=== PATIENT | male | born 1950 | race Caucasian/White ===

== ENCOUNTER 2017-06-14 08:32 | Outpatient (CLI) | payer MEDICARE, OTHER ==
[~2017-06-14] VITALS: Ht 172.7 cm; Wt 105.9 kg
--- NOTE | ~2017-06-14 | HEMODYNAMI ---
PATIENT:CAROLANN FITZGERALD MEDICAL RECORD: [id number] : 50 LOCATION:D.CAT ADMISSION DATE: 06/14/17 Generatedon:06/14/201712:06 Patient name: CAROLANN FITZGERALD Patient #: [id number] SSN: DO B: 1950 Date of study: 06/14/2017 Page: Of Hemodynamic Procedure Report Patient Data Patient Demographics Procedure consent was obtained First Name: CAROLANN Gender: Male Last Name: LIA : 1950 [facility] Initial: R Age: 67 year(s) Patient #: [id number] Race: Unknown Additional ID: [id number] Contact details Address: [address] [place] [address] State: [place] City: [facility] Zip code: [address] Past Medical History Allergies: No known allergies Admission Admission Data Admission Date: 06/14/2017 Admission Time: 8:32 Height (in.): 70 BSA: 2.25 (m2) Height (cm.): 177.8 BMI: 34.15 (kg/m2) Weight (lbs.): 238 Weight (kg.): 107.95 Procedure Procedure Types Cath Procedure Diagnostic Procedure LHC LH w/Coronaries PCI Procedure Coronary Stent Initial Procedure Description Procedure Date Procedure Date: 06/14/2017 Procedure Start Time: 11:27 Procedure End Time: 12:02 Procedure Staff Name Function Antonio Rodrigues MD Performing Physician Chelsi Tripathi RN Nurse Shannan Cuello RT Monitor Elton Vickers RT Scrub Procedure Data Cath Procedure Fluoroscopy Diagnostic fluoroscopy Total fluoroscopy Time: 8.7 time: 8.7 min min Diagnostic fluoroscopy Total fluoroscopy dose: dose: 2251 mGy 2251 mGy Contrast Material Contrast Material Type Amount (ml) Isovue 300 209 Entry Location Entry Primary Successful Side Size Upsize Upsize Entry Closure Succes sful Closure Location (Fr) 1 (Fr) 2 (Fr) Remarks Device Remarks Femoral Right 5 Fr 6 Fr Exoseal artery Short Estimated blood loss: 10 ml Diagnostic catheters Device Type Used For End Catheter Placement Cordis 5Fr JL 4.0 Procedure Catheter (MP) Cordis 5Fr 3DRC Catheter Procedure (MP) Cordis 5Fr Pigtail Ventriculography Catheter (MP) Procedure Complications No complications Procedure Medications Medication Administration Route Dosage Plavix P.O. 75 mg Heparin Flush Bag added to field 2 bags (1000units/500ml NS) Lidocaine 2% added to field 20 Oxygen NC 2 l/min Versed I.V. 1 mg Fentanyl I.V. 50 mcg Versed I.V. 1 mg Fentanyl I.V. 50 mcg Versed I.V. 1 mg Fentanyl I.V. 50 mcg Heparin Bolus I.V. 23111 units Nitroglycerin IC/IA I.C. 100 mcg Hemodynamics Rest BSA: 2.25 (m2) O2 Consumption: Estimated: 280.99 (ml/min) O2 Consumption indexed : Estimated:124.88 (ml/min/m) Heart Rate: 93 (bpm) Pressure Samples Time Site Value (mmHg) Purpose Heart Use Rate(bpm) 11:35 LV 120/28,70 Snapshot 56 Snapshots Pre Cath Intra NCS Post Cath Vital Signs Time Heart Resp SPO2 NIBP (mmHg) Rhythm Pain Sedation Rate (ipm) (%) Status Level (bpm) 11:10:00 80 16 98 121/76(101) NSR 0 (11) 10(A) , No pain 11:14:22 90 29 98 110/52(81) NSR 0 (11) 10(A) , No pain 11:18:30 77 16 98 114/75(97) NSR 0 (11) 10(A) , No pain 11:22:38 75 17 98 106/79(90) NSR 0 (11) 9(A) , No pain 11:26:44 73 18 96 116/73(92) NSR 0 (11) 9(A) , No pain 11:30:50 77 25 99 131/83(91) NSR 0 (11) 9(A) , No pain 11:34:35 78 16 85 121/67(90) NSR 0 (11) 9(A) , No pain 11:38:45 77 16 98 121/81(104) NSR 0 (11) 9(A) , No pain 11:42:55 82 16 97 125/82(102) NSR 0 (11) 9(A) , No pain 11:47:09 76 16 97 119/77(88) NSR 0 (11) 9(A) , No pain 11:51:21 81 15 97 123/75(94) NSR 0 (11) 9(A) , No pain 11:55:30 78 16 97 114/75(90) NSR 0 (11) 9(A) , No pain 11:59:36 79 19 96 110/74(90) NSR 0 (11) 9(A) , No pain 12:04:46 82 16 96 113/73(94) NSR 0 (11) 9(A) , No pain Medications Time Medication Route Dose Verified Delivered Reason Notes Effectiveness by by 11:03:17 Plavix P.O. 75 mg Antonio Chelsi for Dusty Tripathi RN antiplatelet therapy 11:03:32 Oxygen NC 2 Antonio Chelsi Per physician l/min Dusty Tripathi RN 11:09:24 Heparin Flush added 2 Antonio Antonio used for Bag to bags Dusty Rodrigues MD procedure (1000units/500ml field NS) 11:09:31 Lidocaine 2% added 20ml Antonio Antonio used for to vial Dusty Rodrigues MD procedure field 11:13:30 Versed I.V. 1 mg Antonio Chelsi for sedation Dusty Tripathi RN 11:13:36 Fentanyl I.V. 50 Antonio Chelsi for sedation mcg Dusty Tripathi RN 11:16:48 Versed I.V. 1 mg Antonio Chelsi for sedation Dusty Tripathi RN 11:16:52 Fentanyl I.V. 50 Antonio Chelsi for sedation mcg Dusty Tripathi RN 11:20:01 Fentanyl I.V. 50 Antonio Chlesi for sedation mcg Dusty Tripathi RN 11:20:45 Versed I.V. 1 mg Antonio Chelsi for sedation Dusty Tripathi RN 11:41:18 Heparin Bolus I.V. 60967 Antonio Chelsi for dose units Dusty Tripathi RN anticoagulation verifeid wtih dr rodrigues 11:56:41 Nitroglycerin I.C. 100 Antonio Antonio for IC/IA mcg Dusty Rodrigues MD vasodilation Procedure Log Time Note 10:45:26 Diagnostic Cath Status : Elective 10:46:43 Elton Vickers RT(R) (CV) sent for patient. Start room use. 10:48:30 Time tracking: Regular hours 10:48:36 Plan of Care:Hemodynamics will remain stable., Cardiac rhythm will remain stable., Comfort level will be maintained., Respiratory function will remain adequate., Patient/ family verbilizes understanding of procedure., Procedure tolerated without complication., Recovers from procedure without complications.. 11:00:58 Patient diabetic? Yes. 11:00:59 If diabetic: On Metformin? Yes 11:01:06 If on Metformin: Last Dose? 06/13/2017 11:01:46 Snore? Yes 11:01:49 Sleep apnea? Yes 11:01:59 Dentures? No ? 11:02:15 Patient received from Pre/Post Procedure Room to CCL 2 Alert and oriented. Tansferred to table in Supine position. 11:02:16 Warm blankets applied, and opal hugger turned on for patient comfort. 11:02:17 Correct patient and procedure confirmed by team. 11:02:19 Signed procedure consent form obtained from patient. 11:02:24 Pre-procedure instructions explained to patient. 11:02:31 Pre-op teaching completed and patient verbalized understanding. 11:02:33 Family in waiting room. 11:02:37 Patient NPO since Midnight. 11:03:05 Patient allergic to No known allergies 11:03:09 Is the patient allergic to Iodine/contrast media? No. 11:03:11 Is patient on blood thinner?Yes 11:03:14 ACC The patient was administered the following blood thiners within the last 24 hours: ACCPlavix 11:03:17 Plavix 75 mg P.O. was administered by Chelsi Tripathi RN; for antiplatelet therapy; 11:03:21 Patient pain scale 0/10 ?. 11:03:32 Oxygen 2 l/min NC was administered by Chelsi Tripathi RN; Per physician; 11:03:33 IV patent on arrival in right hand with 0.9% NaCl at O. 11:03:44 Lab results completed and on chart. 11:03:48 Right groin area was prepped with chlora-prep and draped in sterile fashion 11:03:49 Alarms reviewed by R. N. 11:03:50 Sharps counted by scrub and verified by R.N. 11:03:52 Physician paged 11:04:56 Patient Height : 177.8 cm 11:05:02 Patient Weight : 107.95 kg 11:08:54 Vital chart was started 11:09:24 Heparin Flush Bag (1000units/500ml NS) 2 bags added to field was administered by Antonio Rodrigues MD; used for procedure; 11:09:31 Lidocaine 2% 20ml vial added to field was administered by Antonio Rodrigues MD; used for procedure; 11:11:58 Physician arrived 11:12:02 Right groin site verified by team. 11:12:12 Physical assessment completed. ASA score P 2 - A patient with mild systemic disease as per Antonio Rodrigues MD. 11:12:16 Sedation plan: IV Moderate Sedation Versed, Fentanyl 11:12:22 ECG and BP/O2 sat monitors applied to patient. 11:12:23 Baseline sample Acquired. 11:12:24 Full Disclosure recording started 11::52 --------ALL STOP TIME OUT------ 11:12:53 Final Timeout: patient, procedure, and site verified with staff and physician. All members of the team are in agreement. 11:13:30 Versed 1 mg I.V. was administered by Chelsi Tripathi RN; for sedation; 11:13:36 Fentanyl 50 mcg I.V. was administered by Chelsi Tripathi RN; for sedation; 11:14:43 Use device set Femoral Dx 11:14:44 Acist Syringe opened to sterile field. 11:14:45 Bag Decanter opened to sterile field. 11:14:45 Medline Cath Pack opened to sterile field. 11:14:46 Terumo 5Fr Shawnee Sheath opened to sterile field. 11:14:46 St Mello 260cm J .035 wire opened to sterile field. 11:14:48 Acist Hand Control opened to sterile field. 11:14:48 Acist Manifold opened to sterile field. 11:14:48 Diagnostic Infinity 5Fr Multipack catheter opened to sterile field. 11:14:49 Tegaderm 4 x 4 opened to sterile field. 11:16:48 Versed 1 mg I.V. was administered by Chelsi Tripathi RN; for sedation; 11:16:52 Fentanyl 50 mcg I.V. was administered by Chelsi Tripathi RN; for sedation; 11:20:01 Fentanyl 50 mcg I.V. was administered by Chelsi Tripathi RN; for sedation; 11:20:45 Versed 1 mg I.V. was administered by Chelsi Tripathi RN; for sedation; 11:24:09 Zero performed for pressure channel P1 11:27:03 Procedure started. 11:27:32 Local anesthetic to right femoral artery with Lidocaine 2% by Antonio Rodrigues MD.INITIAL ACCESS ONLY 11:28:06 A 5 Fr sheath was inserted into the Right Femoral artery 11:29:11 A Cordis 5Fr JL 4.0 Catheter (MP) was advanced over the wire and used for Procedure. 11:30:13 LCA angiography performed. 11:30:56 Catheter removed. 11:31:51 A Cordis 5Fr 3DRC Catheter (MP) was advanced over the wire and used for Procedure. 11:32:42 RCA angiography performed. 11:33:58 Catheter removed. 11:34:19 A Cordis 5Fr Pigtail Catheter (MP) was advanced over the wire and used for Ventriculography. 11:36:18 EF : 45 % 11:36:19 Catheter removed. 11:37:39 Merit BasixCompak Inflation Kit opened to sterile field. 11:37:40 Terumo 6Fr Shawnee Sheath opened to sterile field. 11:37:41 Cordis 6FR XBLAD 3.5 guide catheter opened to sterile field. 11:37:41 High Pressure Extension Tubing (Dusty) opened to sterile field. 11:37:42 Cook BMW Sawyer 2 J-tip 300cm 0.014 guide wir opened to sterile field. 11:37:56 Sheath upsized to a 6 Fr Short. 11:38:09 6 Fr XBLAD 3.5 guide catheter was inserted over the wire 11:39:06 Wire advanced across lesion. 11:41:18 Heparin Bolus 74569 units I.V. was administered by Chelsi Tripathi RN; for anticoagulation; dose verifeid wt dr rodrigues 11:47:07 Inflation Number: 1 A Fernando OTW 3.0 x 12 stent was prepped and advanced across the 2nd Ob Soniya. The stent was deployed at 13 MYKE for 0:13 (min:sec). 11:51:56 Inflation Number: 2 A [place] OTW 2.75 x 08 stent was prepped and advanced across the 2nd Ob Soniya. The stent was deployed at 12 MYKE for 0:00 (min:sec). 11:52:19 Stent catheter was removed intact over wire. 11:54:45 Cordis 6Fr Exoseal opened to sterile field. 11:56:11 Inflation Number: 1 A [place] OTW 3.0 x 08 stent was prepped and advanced across the Prox CX. The stent was deployed at 12 MYKE for 0:00 (min:sec). 11:56:19 Stent catheter was removed intact over wire. 11:56:41 Nitroglycerin IC/IA 100 mcg I.C. was administered by Antonio Rodrigues MD; for vasodilation; 12:00:49 Wire removed. 12:00:50 Guide catheter removed. 12:01:03 Sheath removed intact; hemostasis achieved with Exoseal to the Right Femoral artery. 12:01:06 Procedure ended.(Physican Out) 12:01:19 Fluoroscopy time 08.70 minutes. 12:01:24 Flurop Dose total: 2251 12:01:24 Fluoroscopy dose: 2251 mGy 12:01:30 Contrast amount:Isovue 300 209ml. 12:01:32 Sharps counted by scrub and verified by R.N. 12:01:35 Insertion/operative site no bleeding no hematoma. 12:01:40 Post-op/insertion site Right Femoral artery dressed using a 4 x 4 and Tegaderm. 12:01:47 Post Procedure Pulses reassessed and unchanged 12:01:54 Post-procedure physical assessment completed. ASA score P 2 - A patient with mild systemic disease as per Antonio Rodrigues MD. 12:01:57 Post procedure rhythm: unchanged. 12:01:59 Estimated blood loss: 10 ml 12:02:01 Post procedure instruction explained to patient.Patient verbalizes understanding. 12:02:18 Procedure type changed to Cath procedure, Diagnostic procedure, LHC, LHC w/Coronaries, PCI procedure, Coronary Stent Initial 12:02:20 Procedure and supply charges have been captured, reviewed, submitted and are correct. 12:02:45 Procedure Complication : No complications 12:02:47 Vital chart was stopped 12:02:49 See physician's report for complete and final results. 12:02:50 Report given to Pre/Post Procedure Room. 12:02:54 Patient transfered to Pre/Post Procedure Room with Stretcher. 12:02:56 Procedure ended. 12:02:56 Full Disclosure recording stopped 12:03:01 End room use (Document Last) 12:03:17 ACC-PCI Only Patient was given prescriptions, or instructed by Antonio Rodrigues MD to start/continue the following medications upon discharge: Plavix Intervention Summary Intervention Notes Time ActionType Lesion and Equipment Action# Pressure Duration Attributes Used 11:47:07 Place stent 2nd Ob Soniya Fernando OTW 1 13 00:14 3.0 x 12 stent 11:51:56 Place stent 2nd Ob Soniya [place] OTW 2 12 00:00 2.75 x 08 stent 11:56:11 Place stent Prox CX Fernando OTW 1 12 00:00 3.0 x 08 stent Device Usage Item Name Manufacture Quantity Catalog Hospital Part Current Minima l Lot# / Number Charge Number Stock Stock Serial# Code Acist Acist 1 93673 038852 137999 392601 20 Syringe [employer] Inc Bag Microtek 1 2002S 114456 09256 213267 5 [employer] Medline Cardinal 1 [id number] 833659 42738 570703 5 Cath Pack Health Terumo 5Fr Terumo 1 [id number] 846946 209025 265115 [address] Mello St Mello 1 993279 023026 959858 956682 30 260cm J .035 wire Acist Hand Acist 1 46288 879640 400843 080263 5 Aposense [employer] Inc Acist Acist 1 48643 735267 324801 091073 5 Actifio Medical [employer] Inc Diagnostic Cardinal 1 [id number] 019091 78629 799603 30 Infinity Health 5Fr Multipack catheter Tegaderm 4 3M 1 [id number] 415476 786821 220871 5 x 4 Cordis 5Fr Cardinal 1 094907 5 JL 4.0 Health Catheter (MP) Cordis 5Fr Cardinal 1 343497 5 3DRC Health Catheter (MP) Cordis 5Fr Cardinal 1 880972 5 Pigtail Health Catheter (MP) Merit Merit 1 [id number] 334480 118763 038580 15 Rivalry Medical Inflation Kit Terumo 6Fr Terumo 1 [id number] 988898 937361 486076 40 Shawnee Sheath Cordis 6FR Cardinal 1 [id number] 706721 495634 992029 10 XBLAD 3.5 Health guide catheter [facility] 1 [id number] 761468 58108 449768 10 Pressure Medical Extension Tubing (Rodrigues) Cook BMW Cook 1 [id number] 616230 164556 235487 5 Sawyer 2 Vascular J-tip 300cm 0.014 guide wir Fernando OTW Medtronic 1 [id number] 296139 485093 854751 5 [id number] 3.0 x 12 stent Fernando OTW Medtronic 1 [id number] 768409 48375 867672 5 [id number] 2.75 x 08 stent Cordis 6Fr Cardinal 1 [id number] 075685 866985 556573 10 Exoseal Health [place] OTW Medtronic 1 [id number] 833414 1998627 230314 5 [id number] 3.0 x 08 stent Signature Audit Strawn Stage Time Signature Unsigned Intra-Procedure 06/14/2017 Shannan Cuello 12:06:54 PM RT(R) Signatures Monitor : Shannan Cuello Signature : RT Date : Time : [place] [id number] [place] [address]
[~2017-06-14 08:32] MED LIST: ALDACTONE50 MG PO; AMARYL1 MG PO; ASPIRIN325 MG PO; ENDOCET 10-3251 TAB; ENDOCET 10-3251 TAB PO; GLUCOPHAGE1000 MG PO; LASIX20 MG PO; LIPITOR10 MG PO; LOPRESSOR25 MG PO; PLAVIX75 MG PO; PRAVACHOL40 MG PO; PRINIVIL10 MG PO; ROBAXIN-750750 MG PO
[2017-06-14] MEDS ORDERED: COZAAR50 MG PO (08:46)
[2017-06-14] MEDS ORDERED: NEURONTIN 300300 MG PO (08:47)
[2017-06-14] MEDS ORDERED: TRESIBA FL100 UNIT/1 SC (08:48)
[2017-06-14] MEDS ORDERED: LANTUS INSULIN10 ML SC (08:49)
[2017-06-14 08:58] VITALS: BP 107/76; Ht 172.7 cm; Wt 105.9 kg
[2017-06-14 09:25] LABS: BASOPHILS 0.8 % (0-2); EOSINOPHILS 4.7 % (0-7); HEMATOCRIT 43.5 % (42.0-54.0); HEMOGLOBIN 14.9 g/dL (13.5-17.5); MCH 31.5 pg (26.0-34.0); MCHC 34.3 g/dL (31.0-37.0); MEAN PLATELET VOLUME 12.2 fL (7.4-10.4); MONOCYTES 11.3 % (2-11); NEUTROPHILS 51.2 % (40-80); RBC 4.73 10x6/uL (4.20-6.10); RDW 13.3 % (11.5-14.5); WBC 5.1 10x3/uL (4.8-10.8)
[2017-06-14 09:30] LABS: PLATELET COUNT 175 10x3/uL (130-400)
[2017-06-14 09:42] LABS: ANION GAP 15.5 mmol/L (8-16); CALCIUM 8.3 mg/dL (8.5-10.1); CARBON DIOXIDE 20.8 mmol/L (21.0-32.0); CREATININE - SERUM 1.1 mg/dL (0.6-1.3); POTASSIUM - SERUM 4.3 mmol/L (3.5-5.1)
--- NOTE | 2017-06-14 12:30 | NUR ---
RIGHT GROIN CDI, NO HEMATOMA OR BLEEDING AT SITE, SOFT TO TOUCH, AT SIDE-DENIES NEEDS
--- NOTE | 2017-06-14 13:00 | NUR ---
NO CHANGE IN RIGHT GROIN-STABLE, VSS
--- NOTE | 2017-06-14 16:45 | NUR ---
IV D'C WITH CATH TIP INTACT, WRITTEN AND VERBAL INSTRUCTIONS GIVEN TO PT AND - UNDERSTOOD. D'C HOME WITH , DENIES CHEST PAIN
== END 2017-06-14 17:00 | disposition home or self-care (01) ==
LOC: D.CATH 08:32
PROVIDERS: Internal Medicine Cardiovascular Disease
DX: I25.119 Atherosclerotic heart disease of native coronary artery with unspecified angina pectoris (principal); Z01.812 Encounter for preprocedural laboratory examination

== ENCOUNTER → 2018-06-21 15:56 | Outpatient (CLI) | payer MEDICARE, OTHER ==
[2017-06-14 08:58] VITALS: BMI 35.5
[~2018-06-21 15:56] MED LIST changes: +COZAAR50 MG PO; +LANTUS INSULIN10 ML SC; +NEURONTIN 300300 MG PO; +TRESIBA FL100 UNIT/1 SC
== END | disposition home or self-care (01) ==
LOC: D.MRI 15:56
DX: M48.02 Spinal stenosis, cervical region (principal)